=== PATIENT | male | born 1985 | race Caucasian/White ===

== ENCOUNTER 2020-01-26 00:53 | Emergency (ER) | payer OTHER, SELFPAY ==
[2020-01-26 00:53] VITALS: BP 145/88; PULSE 62; RESP 18; O2SAT 98
--- NOTE | 2020-01-26 00:57 | W.ED.HEATRA ---
HPI - Head Injury General: Chief complaint: Fall Stated complaint: head lac Time Seen by Provider: 01/26/20 00:54 Source: patient Mode of arrival: ambulatory Limitations: no limitations History of Present Illness: HPI Narrative: 34-year-old male intoxicated, was in [place] and slipped walking on a trail and rolled down the trail striking his head. Patient reports a brief loss of consciousness. Patient is alert and oriented at this time. Patient responds appropriately to questions. Patient has multiple abrasions to his body. Patient has a laceration to his right parietal scalp. Review of Systems General: Reports: 10 or more systems reviewed and unremarkable except in HPI and below Skin/Breast: Reports: other (scalp laceration) Physical Exam Const: COMMON NORMALS: no acute distress and patient oriented x3 GENERAL APPEARANCE: cooperative HENMT: COMMON NORMALS: normocephalic, TM's normal bilaterally and Normal external nose present HEAD & SCALP: normal to inspection and normocephalic NOSE: Normal external nose present TYMPANIC MEMBRANE: TM's normal bilaterally MOUTH: Normal oral and palatal mucosa present THROAT: posterior oropharynx normal Eye: GENERAL EYE: appearance normal, both eyes and all related structures Neck/C-Spine: COMMON NORMALS: full ROM Lymph: LYMPHATIC: no lymphadenopathy noted Chest: COMMONS NORMALS: normal inspection of the chest Resp: COMMON NORMALS: normal respiratory effort EFFORT & INSPECTION: Yes able to speak in complete sentences Cardio: COMMON NORMALS: regular rate and regular rhythm RATE: regular rate RHYTHM: regular rhythm GI: COMMON NORMALS: non-tender : COMMON NORMALS: Yes no CVA tenderness BLADDER/KIDNEY EXAM: Yes no CVA tenderness Back/Pelvis: COMMON NORMALS: no CVA tenderness and thoracic and lumbar spine normal to inspection Extremity: COMMON NORMALS: normal to inspection Neuro: COMMON NORMALS: patient oriented x3 and moves all extremities Psych: COMMON NORMALS: mental status grossly normal and cooperative Skin: NARRATIVE SKIN EXAM: Multiple abrasions to the entire body. Laceration to the scalp on the parietal side. 1 superficial laceration approximately 1 cm, and a approximately 4 cm curved laceration. Minimal bleeding was noted at this time. Procedures Laceration Laceration 1: Site: scalp Size (cm): 4 Description: linear Depth: simple, single layer Local Anesthetic: lidocaine 2% and with epi Amount of anesthesia used (mL): 8 Skin layer closed with: other (staple) Number of sutures: 8 Technique: simple, interrupted Laceration 2: Site: scalp Side (If applicable): right Size (cm): 1.5 Description: irregular Depth: simple, single layer Local Anesthetic: lidocaine 1% and with epi Amount of anesthesia used (mL): 3 Pre-repair: wound explored Skin layer closed with: other (staple) Number of sutures: 3 Technique: simple, interrupted Course Vital Signs: Vital signs: Vital Signs Temperature 98.2 F 01/26/20 00:59 Pulse Rate 94 01/26/20 00:59 Blood Pressure 146/99 01/26/20 00:59 Pulse Oximetry 97 01/26/20 00:59 MDM - Head Injury MDM Narrative: Medical decision making narrative: Patient presents today with head injury after tripping and falling down a hill side in [facility]. Patient was camping and had been drinking and went to go to the bathroom when he fell. Exam notes multiple abrasions to his right shoulder right scalp and his left lower knee. Patient also has abrasions elsewhere on his body. Noticeable 1-1/2 cm scalp laceration and a 4 cm scalp laceration on the right parietal scalp. No focal neural deficits were noted. No depression of the skull was noted. Differential diagnosis includes fracture, intracranial bleeding, laceration. CT scan of the head noted no intracranial bleeding or skull fracture. Wounds were closed with hipolito. Patient tolerated well. Patient was given a cephalexin for prophylaxis. Reviewed exam with patient with recommendations for follow-up and wound care. Patient reported understanding. Discharge Plan Discharge Patient Disposition: Home Clinical Impression: Abrasion, multiple sites Laceration of scalp Qualifiers: Encounter type: initial encounter Qualified Code(s): S01.01XA - Laceration without foreign body of scalp, initial encounter Condition: Stable Prescriptions: New cephalexin 500 mg capsule 500 mg PO BID 10 Days Qty: 20 RF: 0 hydrocodone-acetaminophen 5-325 mg tablet 1 tab PO Q6H PRN (Reason: pain) Qty: 7 RF: 0 Discharge Orders: Discharge Order (Routine); Ordered 01/26/20 Ordered By: Antoni Mcfarlane Discharge Diet: Usual diet Discharge Activity: Increase activity as tolerated Patient Instructions: Laceration (ED), Minor Head Injury (ED), Abrasion (ED) Activity Restrictions/Additional Instructions: Home and rest. Drink plenty of water. Take medications as directed. Use acetaminophen and ibuprofen to control pain. Use hydrocodone for breakthrough pain. Follow-up for staple removal in 7 days. Return to the emergency department as needed for new concerns. 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
[2020-01-26 00:59] VITALS: BP 146/99; PULSE 94; TEMP 36.8; O2SAT 97; BMI 32.5
--- NOTE | 2020-01-26 01:00 | CTR_ITS ---
PROCEDURE INFORMATION: Exam: CT Head Without Contrast Exam date and time: 01/26/2020 1:08 AM Age: 34 years old Clinical indication: Injury or trauma; Fall; Initial encounter; Blunt trauma (contusions or hematomas); With loss of consciousness; Loss of consciousness for 30 minutes or less TECHNIQUE: Imaging protocol: Computed tomography of the head without contrast. Radiation optimization: All CT scans at this facility use at least one of these dose optimization techniques: automated exposure control; mA and/or kV adjustment per patient size (includes targeted exams where dose is matched to clinical indication); or iterative reconstruction. COMPARISON: No relevant prior studies available. RADIATION DOSE METRICS: Total DLP (mGy-cm): 851.91 FINDINGS: Brain: Normal. No hemorrhage. Unremarkable white matter. No mass effect. Ventricles: Normal. No ventriculomegaly. Bones/joints: Unremarkable. No acute fracture. Sinuses: Visualized sinuses are unremarkable. No fluid levels. Mastoid air cells: Visualized mastoid air cells are well aerated. Soft tissues: Soft tissue swelling, laceration and hematoma formation seen within the right frontoparietal scalp. CT/CT head wo con* [id number] IMPRESSION: There are no acute intracranial findings. Radiation Dose CTDIVOL = (mGy): DLP = 851.91 (mGy-cm)
[2020-01-26 02:34] VITALS: BP 160/82; PULSE 72; RESP 18; O2SAT 98
== END 2020-01-26 02:36 | disposition home or self-care (01) ==
PROVIDERS: Emergency Provider Nurse Practitioner Family
DX: S01.01XA Laceration without foreign body of scalp, initial encounter (principal); T14.8XXA Other injury of unspecified body region, initial encounter; W01.198A Fall on same level from slipping, tripping and stumbling with subsequent striking against other object, initial encounter
CPT/HCPCS: 12002; 12345; 70450; 99282; 99283